=== PATIENT | female | born 1990 | race Caucasian/White ===

== ENCOUNTER 2016-04-17 12:46 | Emergency (ER) | payer OTHER ==
[~2016-04-17] VITALS: Ht 170.2 cm; Wt 99.8 kg
[~2016-04-17 12:46] MED LIST: AMOXICILLIN500 MG PO; AMOXIL500 MG PO; ATIVAN0.5 MG PO; AUGMENTIN 875875 MG PO; BACTRIM DS 8001 TAB PO; BENADRYL ALLERG25 MG PO; FLAG500 PO; GLUMETZA500 MG PO; MOTRIN 800MG T800 MG PO; MOTRIN800 MG PO; NEXIUM 40MG40 MG PO; PEPCID 20MG TAB20 MG PO; PREDNISONE 20MG20 MG PO; PRILOSEC40 MG PO; REGLAN10 MG PO; ZOFRAN 4 MG TABL4 MG PO; ZOFRAN4 MG PO
[2016-04-17 14:27] LABS: ABSOLUTE BASOPHIL COUNT 0.1 /CUMM (0.0-0.2); ABSOLUTE EOSINOPHIL COUNT 0.4 /CUMM (0.0-0.7); ABSOLUTE GRANULOCYTE CT 4.4 /CUMM (1.4-6.5); ABSOLUTE LYMPH COUNT 2.7 /CUMM (1.2-3.4); ABSOLUTE MONOCYTE COUNT 0.5 /CUMM (0.10-0.60); BASOPHIL % 0.8 % (0.0-2.0); GRANULOCYTE % 54.4 % (42.2-75.2); HEMATOCRIT 37.3 % (37-47); MEAN CORPUSCULAR HGB CONC 32.3 G/DL (33.0-37.0); MEAN CORPUSCULAR VOLUME 71.2 FL (81.0-99.0); MEAN PLATELET VOLUME 8.8 FL (7.4-10.4); PLATELET COUNT 263 /CUMM (130-400); RBC DISTRIBUTION WIDTH 15.6 % (11.5-14.5); RED BLOOD CELL CT 5.24 /CUMM (4.20-5.40); WHITE BLOOD CELL COUNT 8.1 /CUMM (4.8-10.8)
--- NOTE | 2016-04-17 14:52 | ED GI/GU/ABDOMINAL COMPLAINT ---
History of Present Illness General Chief Complaint: Abdominal Pain/Flank Pain Stated Complaint: L SIDED ABD PAIN Source: patient Exam Limitations: no limitations Vital Signs & Intake/Output Vital Signs & Intake/Output Vital Signs Date Time Temp Pulse Resp B/P Pulse O2 O2 Flow FiO2 Ox Delivery Rate 04/17 1826 76 20 132/76 96 Room Air 04/17 1659 72 20 113/72 99 Room Air 04/17 1520 97.1 68 18 110/59 98 Room Air 04/17 1300 98.3 89 16 117/87 100 Room Air ED Intake and Output 04/18 0000 04/17 1200 Intake Total Output Total Balance Patient 220 lb Weight Allergies Coded Allergies: oak (UNKNOWN 06/12/15) Uncoded Allergies: DUST MITES (UNKNOWN 06/12/15) Reconcile Medications Ferrous Sulfate (IRON) 325 MG (65 MG IRON) TABLET 1 TAB PO DAILY SUPPLEMENT ( Reported) Triage Note: PT TO ED FOR INTERMITTENT PULSATING IN ABD X "A WHILE". DENIES ANY PAIN, NAUSEA, VOMITING. ALSO REPORTING "I MIGHT BE I DONT KNOW I GUESS MAYBE THATS IT" HX OF GASTRIC SLEEVE 2 YEARS AGO. Triage Nurses Notes Reviewed? yes ? n Is pt currently ? No Onset: Abrupt Duration: day(s): (few) Timing: recent history Location: epigastric Radiation: no radiation No Modifying Factors: none HPI: 26-year-old female comes into emergency room for further evaluation of epigastric pulsatile sensation this been going on intermittently for the past 2 days. History of gastric sleeve. Gastric sleeve was done in July 2014. Denies any vomiting or changes in bowel movement. Patient does not describe it as a pain. She currently does not have a bariatric surgeon because her surgeon moved to [place]. Denies any other associated symptoms at this time. (SHELTON SU) Past History Travel History Traveled to [place] past 21 day No Medical History Any Pertinent Medical History? see below for history Neurological: NONE EENT: NONE Cardiovascular: NONE Respiratory: NONE Gastrointestinal: GERD, hiatal hernia Hepatic: NONE Renal: NONE Musculoskeletal: NONE Psychiatric: anxiety Endocrine: diabetes Blood Disorders: NONE Cancer(s): NONE MANAGER INTERNET/Reproductive: NONE History of MRSA: No History of VRE: No History of CDIFF: No Surgical History Surgical History: cholecystectomy, GASTRIC SLEEVE Psychosocial History Who do you live with Mother Services at Home NONE What is your primary language Faroese Tobacco Use: Current Daily Use Daily Tobacco Use Amount/Type: => 5 Cigarettes daily ETOH Use: denies use Illicit Drug Use: denies illicit drug use Family History Hx Contributory? No (SHELTON SU) Review of Systems Review of Systems Constitutional: Reports: no symptoms. EENTM: Reports: no symptoms. Respiratory: Reports: no symptoms. Cardiovascular: Reports: no symptoms. GI: Reports: see HPI. Genitourinary: Reports: no symptoms. Musculoskeletal: Reports: no symptoms. Skin: Reports: no symptoms. Neurological/Psychological: Reports: no symptoms. Hematologic/Endocrine: Reports: no symptoms. Immunologic/Allergic: Reports: no symptoms. All Other Systems: Reviewed and Negative (SHELTON SU) Physical Exam Physical Exam General Appearance: well developed/nourished, no apparent distress, alert Head: atraumatic, normal appearance Eyes: Bilateral: normal appearance, PERRL, EOMI. Ears, Nose, Throat, Mouth: hearing grossly normal, moist mucous membrane Neck: normal inspection, full range of motion Respiratory: normal breath sounds, no respiratory distress Cardiovascular: regular rate/rhythm Gastrointestinal: normal bowel sounds, soft Back: normal inspection Extremities: normal range of motion Neurologic/Psych: awake, alert, oriented x 3, normal gait, normal mood/affect Skin: intact, normal color Core Measures ACS in differential dx? No Severe Sepsis Present: No Septic Shock Present: No (SHELTON SU) Progress Differential Diagnosis: appendicitis, biliary colic, cholecystitis, diverticulitis, gastritis, hepatitis, ovarian torsion, pancreatitis, peptic ulcer, PUD/GERD, perforated viscous, SBO, UTI/pyelo, internal hernia Plan of Care: Orders Procedure Date/time Status Add-on Test (ER Only) 04/17 1407 Active LIPASE 04/17 1407 Complete LACTIC ACID 04/17 1407 Complete COMPREHENSIVE METABOLIC PANEL 04/17 1407 Complete CBC WITHOUT DIFFERENTIAL 04/17 1407 Complete AMYLASE 04/17 1407 Complete URINALYSIS 04/17 1310 Complete URINE 04/17 1301 Complete Laboratory Tests 04/17/16 1707: Lactic Acid Cancelled 04/17/16 1416: Anion Gap 8, Estimated GFR > 60, BUN/Creatinine Ratio 33.3 H, Glucose 87, Lactic Acid 0.5 L, Calcium 9.9, Total Bilirubin 0.4, AST 24, ALT 39, Alkaline Phosphatase 61, Total Protein 7.2, Albumin 4.1, Globulin 3.1, Albumin/Globulin Ratio 1.3, Amylase 53, Lipase 121, CBC w Diff NO MAN DIFF REQ, RBC 5.24, MCV 71.2 L, MCH 23.0 L, RDW 15.6 H, MPV 8.8, Gran % 54.4, Lymphocytes % 33.9, Monocytes % 5.9, Eosinophils % 5.0, Basophils % 0.8, Absolute Granulocytes 4.4, Absolute Lymphocytes 2.7, Absolute Monocytes 0.5, Absolute Eosinophils 0.4, Absolute Basophils 0.1, PUBS MCHC 32.3 L 04/17/16 1310: Urinalysis LIGHT H, Urine Color YEL, Urine Clarity HAZY H, Urine pH 6.0, Ur Specific Harlan >= 1.030, Urine Protein TRACE H, Urine Ketones NEG, Urine Nitrite NEG, Urine Bilirubin NEG, Urine Urobilinogen 2.0 H, Ur Leukocyte Esterase NEG, Ur Microscopic SEDIMENT EXAMINED, Urine RBC RARE, Urine WBC 3-5 H , Ur Epithelial Cells PACKD H, Urine Bacteria MANY H, Urine Hemoglobin NEG, Urine Glucose NEG, Urine Test NEGATIVE Diagnostic Imaging: Viewed by Me: CT Scan. Discussed w/RAD: CT Scan. Radiology Impression: SERVICE DATE: 04/17/16 EXAM TYPE: CAT - CT ABD & PELVIS W ORAL & IV CO EXAMINATION: CT ABDOMEN AND PELVIS WITH CONTRAST CLINICAL INFORMATION: Epigastric abdominal pain. History of gastric sleeve bypass. COMPARISON: CT abdomen and pelvis 12/09/2014. TECHNIQUE: Multidetector volumetric imaging was performed of the abdomen and pelvis before and after the IV administration of 95 mL of Optiray 320 intravenous contrast. 100 ml of water and 5 mL of Gastroview were also administered. Sagittal and coronal reformatted images were obtained on the technologist's workstation. DLP: 865 mGy-cm FINDINGS : LUNG BASES: The visualized lung bases are unremarkable. LIVER, GALLBLADDER, AND BILIARY TREE: The liver is normal in size, shape, and attenuation. No focal hepatic lesion or biliary ductal dilatation is present. The gallbladder is surgically absent. PANCREAS: Unremarkable. SPLEEN: Unremarkable. ADRENAL GLANDS: Unremarkable. KIDNEYS AND URETERS: Evaluation of the bilateral kidneys and renal collecting systems is notable for an 8 mm nonobstructing stone within the lower pole of the right kidney. There is no appreciable nephrolithiasis of the left kidney. No ureteral stones are identified and there is no hydroureteronephrosis of either kidney or renal collecting system. BLADDER: Unremarkable. GASTROINTESTINAL TRACT: Evaluation of the gastrointestinal system is notable for postsurgical changes related to gastric sleeve bypass. Abdominal and pelvic bowel loops are normal in caliber, without findings indicative of obstruction or ileus. There is normal anatomic orientation of the stomach relative to the duodenum. There is a minimal amount of retained stool throughout the colon. A normal-appearing appendix is present within the right lower quadrant of the abdomen. No organizing intra-abdominal or pelvic fluid collections are identified and there is no free intraperitoneal air. ABDOMINAL WALL: No significant hernia is appreciated. LYMPH NODES: No significant abdominal or pelvic adenopathy. VASCULAR: Patent abdominal vasculature. Normal course and caliber of the abdominal aorta and its branching vessels, without aneurysmal dilatation. PELVIC VISCERA: The ovaries appear symmetric. OSSEOUS STRUCTURES: No acute osseous abnormality. Normal alignment of the imaged thoracolumbar spine. IMPRESSION: 1. No acute findings within the abdomen or pelvis to explain patient symptomatology. 2. Stable postsurgical changes related to prior gastric sleeve bypass surgery. Abdominal and pelvic bowel loops are normal in caliber, without findings indicative of small bowel obstruction or ileus. 3. An 8 mm nonobstructing stone within the lower pole of the right kidney. No ureteral or bladder stones are identified and there is no hydroureteronephrosis of either kidney or renal collecting system. DICTATED BY: CRISTY LEWIS MD DATE/TIME DICTATED:04/17/161631 NIGHT CUSTODIAN:MENA DATE/TIME TRANSCRIBED:1631 Initial ED EKG: none Comments: 04/17/2016 6:47:35 PM Patient clinically looks well here in the emergency room. Patient keeps asking when she can leave. Spoke with bariatric surgeon on-call Dr. bailey who instructed me to have her call the office. Case discussed with Dr. fields. Patient is nontoxic-appearing and in no apparent distress. Clinically looks well. Patient resting comfortably in room upon multiple re-evaluations. Return if any other concerns worsening symptoms. (MONROE LOWE,SHELTON) Departure Departure Disposition: HOME OR SELF CARE Condition: Stable Clinical Impression Primary Impression: Abdominal pain Referrals: BARBARA VASQUEZ,CARROLL Michel,ESTEFANI BROWN (PCP/Family) Additional Instructions: Follow up with bariatric surgeon provided. Return to the emergency room if any concerns worsening symptoms. Please go over all results of today's visit with your primary care doctor. Contact your primary care doctor to let them know you were here in the emergency room. There may be nonspecific findings which may not be related to your visit today here in the emergency room but may require further evaluation and chronic monitoring by your primary care doctor. If you had a laceration today the chance of foreign body always remains. You should follow-up with your primary care doctor for recheck in 3-5 days for a wound check. If you had an x-ray done there is a chance that a fracture could have been missed on initial read and you should follow-up with your primary care doctor for repeat x-rays if symptoms persist. If your blood pressure was elevated here in the emergency room please have rechecked by her primary care doctor within the next 48 hours by your primary care doctor. If you were prescribed a narcotic here in the emergency room or any type of controlled substances you're not allowed to drive while taking this medication or operate any type of heavy machinery. Narcotics can make you feel lightheaded dizziness nausea and can cause constipation. You may need to cotton picker operator a stool softener. Thank you for choosing [facility] emergency room. Please return to the emergency room immediately if you have any other concerns worsening of symptoms. Departure Forms: Customer Survey General Discharge Information (SHELTON SU) PA/CUFF STITCHER Co-Sign Statement Statement: ED Attending supervision documentation- [] I saw and evaluated the patient. I have also reviewed all the pertinent lab results and diagnostic results. I agree with the findings and the plan of care as documented in the PA's/CUFF STITCHER's documentation. [X] I have reviewed the ED Record and agree with the PA's/CUFF STITCHER's documentation. [] Additions or exceptions (if any) to the PAs/CUFF STITCHER's note and plan are summarized below: [] (ELIZABETH VASQUEZ,CLARE)
--- NOTE | 2016-04-17 16:48 | CT SCAN REPORT ---
EXAMINATION: CT ABDOMEN AND PELVIS WITH CONTRAST CLINICAL INFORMATION: Epigastric abdominal pain. History of gastric sleeve bypass. COMPARISON: CT abdomen and pelvis 12/09/2014. TECHNIQUE: Multidetector volumetric imaging was performed of the abdomen and pelvis before and after the IV administration of 95 mL of Optiray 320 intravenous contrast. 100 ml of water and 5 mL of Gastroview were also administered. Sagittal and coronal reformatted images were obtained on the technologist's workstation. DLP: 865 mGy-cm FINDINGS: LUNG BASES: The visualized lung bases are unremarkable. LIVER, GALLBLADDER, AND BILIARY TREE: The liver is normal in size, shape, and attenuation. No focal hepatic lesion or biliary ductal dilatation is present. The gallbladder is surgically absent. PANCREAS: Unremarkable. SPLEEN: Unremarkable. ADRENAL GLANDS: Unremarkable. KIDNEYS AND URETERS: Evaluation of the bilateral kidneys and renal collecting systems is notable for an 8 mm nonobstructing stone within the lower pole of the right kidney. There is no appreciable nephrolithiasis of the left kidney. No ureteral stones are identified and there is no hydroureteronephrosis of either kidney or renal collecting system. BLADDER: Unremarkable. GASTROINTESTINAL TRACT: Evaluation of the gastrointestinal system is notable for postsurgical changes related to gastric sleeve bypass. Abdominal and pelvic bowel loops are normal in caliber, without findings indicative of obstruction or ileus. There is normal anatomic orientation of the stomach relative to the duodenum. There is a minimal amount of retained stool throughout the colon. A normal-appearing appendix is present within the right lower quadrant of the abdomen. No organizing intra-abdominal or pelvic fluid collections are identified and there is no free intraperitoneal air. ABDOMINAL WALL: No significant hernia is appreciated. LYMPH NODES: No significant abdominal or pelvic adenopathy. VASCULAR: Patent abdominal vasculature. Normal course and caliber of the abdominal aorta and its branching vessels, without aneurysmal dilatation. PELVIC VISCERA: The ovaries appear symmetric. OSSEOUS STRUCTURES: No acute osseous abnormality. Normal alignment of the imaged thoracolumbar spine. IMPRESSION: 1. No acute findings within the abdomen or pelvis to explain patient symptomatology. 2. Stable postsurgical changes related to prior gastric sleeve bypass surgery. Abdominal and pelvic bowel loops are normal in caliber, without findings indicative of small bowel obstruction or ileus. 3. An 8 mm nonobstructing stone within the lower pole of the right kidney. No ureteral or bladder stones are identified and there is no hydroureteronephrosis of either kidney or renal collecting system.
[2016-04-17] MEDS ORDERED: IRON325 M3 PO (17:06)
[2016-04-17 18:26] VITALS: BP 132/76
== END 2016-04-17 18:29 ==
LOC: ERH 12:46
PROVIDERS: Physician Assistant Medical
DX: R10.13 Epigastric pain (principal)
CPT/HCPCS: 74177; 81001; 81025